=== PATIENT | male | born 1975 | race Hispanic/Latino ===

== ENCOUNTER 2021-01-18 09:11 | Emergency (ER) | payer OTHER ==
[~2021-01-18] VITALS: Ht 170.2 cm; Wt 83.9 kg
[2021-01-18 09:13] VITALS: BP 128/84
[2021-01-18] MEDS ORDERED: AMOXICILLIN/POTASSIUM CLAV 875-125 TABLET PO ONE (12:15)
[2021-01-18] MEDS ORDERED: ACETAMINOPHEN-CODEINE 300/30MG TAB PO ONE (12:15)
[2021-01-18] MEDS ORDERED: PREDNISONE 20 MG TABLET PO SCH (12:15)
[2021-01-18] MEDS ORDERED: PRED20TA3 PO (12:46)
[2021-01-18] MEDS ORDERED: BENZ-17 PO (12:46)
[2021-01-18] MEDS ORDERED: AMOX-429 PO (12:46)
[2021-01-18] MEDS ORDERED: ALBU8.5H8 IH (12:46)
== END 2021-01-18 13:08 ==
LOC: EDH 10:33
DX: J45.909 Unspecified asthma, uncomplicated (principal); Z20.822 Contact with and (suspected) exposure to COVID-19; Z79.899 Other long term (current) drug therapy; Z79.52 Long term (current) use of systemic steroids
CPT/HCPCS: 71045; 87426; 87635; 87804 ×2; 87880; 99284; C9803